=== PATIENT | female | born 1995 | race Caucasian/White ===

== ENCOUNTER 2020-02-16 13:41 | Emergency (ER) | payer BC, SELFPAY ==
[2020-02-16 13:58] VITALS: BP 122/71; PULSE 83; RESP 12; TEMP 36.8; O2SAT 99
--- NOTE | 2020-02-16 14:14 | ED.FEMALEGU ---
HPI - Female Genitourinary General Chief complaint: Urogenital-Female Stated complaint: back pain Time Seen by Provider: 02/16/20 13:43 Source: patient Mode of arrival: ambulatory Limitations: no limitations History of Present Illness HPI Narrative: 24-year-old female presents to urgent care with complaints of low back pain, nausea and decreased urinary flow for the past 3 days. Patient denies fever, body aches, chills, hematuria, vomiting or diarrhea. Patient does have Nexplanon. elicited complaint: back pain Onset (ago): day(s) (3) Severity: mild Vaginal bleeding: none Urinary symptoms: Flank Pain Associated symptoms: nausea and back pain Treatment prior to arrival: none Patient : No Related Data Home Medications Medication Instructions Recorded Confirmed etonogestrel [Nexplanon] 1 implant SUBDERMAL ONCE 02/16/20 02/16/20 Allergies Allergy/AdvReac Type Severity Reaction Status Date / Time No Known Allergies Allergy Verified 02/16/20 14:02 Review of Systems Review of Systems: All systems reviewed & are unremarkable except as noted in HPI and below Constitutional: Constitutional: Denies chills and Denies fatigue ENT: Denies vertigo and Denies dizziness Cardiovascular: Cardiovascular: Denies chest pain, Denies radiating jaw, neck or arm pain and Denies slow heart rate Gastrointestinal: Gastrointestinal: Denies constipation, Denies diarrhea, Reports nausea and Denies vomiting Genitourinary: Genitourinary: Denies abnormal vaginal bleeding, Denies hematuria, Denies dysuria, Denies pelvic pain and Denies vaginal discharge Comments: Decreased urinary flow and bilateral flank pain Integumentary/Breasts: Skin/Breast: Denies rash Neurologic: Denies dizziness and Denies syncope PMFSH Social History Social History (Updated 02/16/20 @ 14:18 by Tanesha Mayfield, [employer]) Smoking status: Never smoker Exam Const: General: healthy appearing, no acute distress and alert Nutritional Appearance: well nourished Orientation/consciousness: patient oriented x3 Neck: Neck: normal visual inspection and no lymphadenopathy Resp: Effort & Inspection: normal respiratory effort, not labored and not tachypneic Auscultation: clear to auscultation bilaterally, no crackles, no rales, no rhonchi and no wheezes Cardio: Rate: regular rate Rhythm: regular rhythm Heart sounds: no murmurs GI: GI Palp: Yes Soft to palpation, No Tenderness to palpation present (GI), No Guarding due to palpation present (GI), No Rigid due to palpation and No Palpable mass present Auscultation: normal bowel sounds : General: Yes bladder normal to palpation and Yes CVA tenderness (Mild) bilateral Back/Spine/Pelvis: Back: CVA tenderness Skin: General skin exam: normal color, no jaundice and no pallor Rashes: no rashes Neuro: General: patient oriented x3, moves all extremities, no meningeal signs and no focal motor deficits Extrem: General: normal to inspection Psych: Mental Status: mental status grossly normal Affect: normal affect Attitude: cooperative Thought content: Yes Normal thought content present Course Vital Signs Vital signs: Vital Signs Temperature 36.8 C 02/16/20 13:58 Pulse Rate 83 02/16/20 13:58 Respiratory Rate 12 02/16/20 13:58 Blood Pressure 122/71 02/16/20 13:58 Pulse Oximetry 99 02/16/20 13:58 Temperature 36.8 C 02/16/20 13:58 Pulse Rate 83 02/16/20 13:58 Respiratory Rate 12 02/16/20 13:58 Blood Pressure 122/71 02/16/20 13:58 Pulse Oximetry 99 02/16/20 13:58 MDM - Female Genitourinary MDM Narrative Medical decision making narrative: Urinalysis results discussed with patient. Patient agrees to take ciprofloxacin as prescribed. Urine culture obtained and sent to lab --patient understands that we will call her if antibiotic needs to be changed. Patient agrees to monitor symptoms closely proceed immediately to emergency room if symptoms were Differential Diagnosis Di
== END 2020-02-16 14:30 | disposition home or self-care (01) ==
PROVIDERS: Emergency Provider Nurse Practitioner Family
DX: N30.00 Acute cystitis without hematuria (principal)
CPT/HCPCS: 81003; 87077; 87086; 87088; 87186; 99213; G0463